=== PATIENT | male | born 1945 | race Caucasian/White ===

== ENCOUNTER 2016-07-04 01:03 | Emergency (ER) | payer MEDICARE, OTHER ==
[~2016-07-04 01:03] MED LIST: CENTRUM SAW PA160 MG PO; LEVOTHYROXINE0.1 MG PO; LUTEIN20 M2 PO; MEN'S MULTIVITA1 TAB PO; NEURONTIN300 MG PO; OMEGA 31000 MG PO; ZOCOR 20MG20 MG PO
[2016-07-04] MEDS ORDERED: LOPRESSOR 225 MG/TAB PO (01:33)
[2016-07-04] MEDS ORDERED: CLOPIDOGREL75 M1 PO (01:33)
[2016-07-04] MEDS ORDERED: VASOTEC 2.2.5 MG/TAB PO (01:33)
[2016-07-04] MEDS ORDERED: ATORVASTATIN CA40 MG PO (01:34)
[2016-07-04] MEDS ORDERED: ADULT LOW DOSE81 MG PO (01:35)
[2016-07-04] MEDS ORDERED: TYLENOL 325MG325 MG PO (01:35)
[2016-07-04] MEDS ORDERED: VITAMIN D 1001000 IU PO (01:36)
[2016-07-04] MEDS ORDERED: CAL MAG ZINC +1 EACH PO (01:36)
[2016-07-04] MEDS ORDERED: FLOMAX0.4 MG PO (03:48)
[2016-07-04] MEDS ORDERED: PERCOCET 325 MG1 TA2 PO (03:48)
[2016-07-04] MEDS ORDERED: CIPRO500 M1 PO (04:02)
[2016-07-04 04:58] VITALS: BP 117/64
== END 2016-07-04 04:50 | disposition home or self-care (01) ==
LOC: ED 01:03
DX: N13.2 Hydronephrosis with renal and ureteral calculous obstruction (principal)
CPT/HCPCS: J0696; J1885; J2270; J2405; J7030

== ENCOUNTER → 2016-07-17 | Outpatient (CLI) | payer MEDICARE, OTHER ==
[~2016-07-17] MED LIST changes: +ADULT LOW DOSE81 MG PO; +ATORVASTATIN CA40 MG PO; +CAL MAG ZINC +1 EACH PO; +CIPRO500 M1 PO; +CLOPIDOGREL75 M1 PO; +FLOMAX0.4 MG PO; +LOPRESSOR 225 MG/TAB PO; +PERCOCET 325 MG1 TA2 PO; +TYLENOL 325MG325 MG PO; +VASOTEC 2.2.5 MG/TAB PO; +VITAMIN D 1001000 IU PO
== END ==
LOC: RAD 11:18
DX: N20.1 Calculus of ureter (principal)

== ENCOUNTER → 2016-12-31 | Outpatient (CLI) | payer MEDICARE | LOC: RAD 14:00 | DX: I63.9 Cerebral infarction, unspecified (principal); I65.23 Occlusion and stenosis of bilateral carotid arteries ==

== ENCOUNTER → 2017-01-12 | Outpatient (CLI) | payer MEDICARE | LOC: RAD 14:27 | DX: I65.23 Occlusion and stenosis of bilateral carotid arteries (principal) | CPT/HCPCS: Q9967 ==